=== PATIENT | female | born 1940 | race Native Hawaiian/Other Pacific Islander ===

== ENCOUNTER 2019-09-30 20:14 | Emergency (ER) | payer OTHER, BC ==
[~2019-09-30] VITALS: Ht 165.1 cm; Wt 64.0 kg
[2019-09-30 20:40] VITALS: TEMP 98.6
[2019-09-30 22:00] LABS: PLATELET COUNT 202 K/uL (152-353)
[2019-09-30 22:09] LABS: POTASSIUM 4.2 mmol/L (3.6-5.2); SODIUM 129 mmol/L (136-145)
[2019-09-30] MEDS ORDERED: LOSA50TA PO (22:14)
[2019-10-01 00:30] VITALS: BP 137/70
== END 2019-10-01 00:30 | disposition home or self-care (01) ==
LOC: ED 20:14
PROVIDERS: Family Medicine
DX: G45.9 Transient cerebral ischemic attack, unspecified (principal); E87.1 Hypo-osmolality and hyponatremia; I10 Essential (primary) hypertension
CPT/HCPCS: 36415; 80053; 81000; 82550; 84484; 85027; 93005; 99283